=== PATIENT | male | born 1950 | race Caucasian/White ===

== ENCOUNTER 2016-09-10 12:26 | Inpatient (IN) | payer OTHER ==
[~2016-09-10] VITALS: Ht 165.1 cm; Wt 57.6 kg
[2016-09-11 04:44] LABS: HEMOGLOBIN 7.9 gm/dl (14.0-17.5); RED BLOOD COUNT 3.1 M/UL (4.20-5.50); WHITE BLOOD COUNT 14.8 K/UL (4.5-11.0)
[2016-09-11 04:56] LABS: BUN/CREATININE RATIO 26 (0-10)
[2016-09-11] MEDS ORDERED: PROAIR HFA8.5 GM INH (09:49)
[2016-09-11] MEDS ORDERED: DULERA 200 MCG8.8 GM INH (09:50)
[2016-09-12 05:56] LABS: BUN/CREATININE RATIO 30 (0-10)
[2016-09-13 04:53] LABS: HEMOGLOBIN 7.1 gm/dl (14.0-17.5); WHITE BLOOD COUNT 17.5 K/UL (4.5-11.0)
[2016-09-13 04:59] LABS: RED BLOOD COUNT 2.74 M/UL (4.20-5.50)
[2016-09-13 05:16] LABS: BUN/CREATININE RATIO 40 (0-10)
[2016-09-14 04:47] LABS: WHITE BLOOD COUNT 20.7 K/UL (4.5-11.0)
[2016-09-14 04:50] LABS: HEMOGLOBIN 10.3 gm/dl (14.0-17.5); RED BLOOD COUNT 3.89 M/UL (4.20-5.50)
[2016-09-14 05:13] LABS: BUN/CREATININE RATIO 37 (0-10)
[2016-09-15 06:43] LABS: BUN/CREATININE RATIO 44 (0-10)
[2016-09-15] MEDS ORDERED: COLACE100 MG PO (11:04)
[2016-09-15] MEDS ORDERED: FERROUS SULFAT325 M2 PO (11:04)
[2016-09-15] MEDS ORDERED: LOPRESSOR 25 MG25 MG PO (11:05)
[2016-09-15] MEDS ORDERED: LEVAQUIN750 MG PO (11:06)
[2016-09-15] MEDS ORDERED: ALBUTEROL0.63 MG/3 INH (11:07)
== END 2016-09-15 12:26 | disposition home or self-care (01) | DRG 853 ==
LOC: MED SURG 4 12:26
PROVIDERS: Internal Medicine Pulmonary Disease; ADMIT Internal Medicine
PROC: 0B9C8ZX Drainage of Right Upper Lung Lobe, Via Natural or Artificial Opening Endoscopic, Diagnostic (ICD-10-PCS; principal; 2016-09-11 08:30)
PROC: 30233N1 Transfusion of Nonautologous Red Blood Cells into Peripheral Vein, Percutaneous Approach (ICD-10-PCS; 2016-09-13)
DX: A41.81 Sepsis due to Enterococcus (principal); J15.1 Pneumonia due to Pseudomonas; J44.0 Chronic obstructive pulmonary disease with (acute) lower respiratory infection; J96.11 Chronic respiratory failure with hypoxia; T17.890A Other foreign object in other parts of respiratory tract causing asphyxiation, initial encounter; R78.81 Bacteremia; E46 Unspecified protein-calorie malnutrition; J44.1 Chronic obstructive pulmonary disease with (acute) exacerbation; X58.XXXA Exposure to other specified factors, initial encounter; D50.9 Iron deficiency anemia, unspecified; B95.2 Enterococcus as the cause of diseases classified elsewhere; R00.0 Tachycardia, unspecified; Z16.11 Resistance to penicillins; K44.9 Diaphragmatic hernia without obstruction or gangrene; M85.80 Other specified disorders of bone density and structure, unspecified site; M47.9 Spondylosis, unspecified; R91.8 Other nonspecific abnormal finding of lung field; Z87.891 Personal history of nicotine dependence; Z68.21 Body mass index [BMI] 21.0-21.9, adult; Z99.81 Dependence on supplemental oxygen; Z79.51 Long term (current) use of inhaled steroids; Z79.899 Other long term (current) drug therapy; Z88.3 Allergy status to other anti-infective agents; Z88.8 Allergy status to other drugs, medicaments and biological substances; Z90.49 Acquired absence of other specified parts of digestive tract; Z98.890 Other specified postprocedural states; Z83.6 Family history of other diseases of the respiratory system
CPT/HCPCS: ECHO; 36415; 36430; 36600; 71020; 80048; 80053; 80202; 82270; 82607; 82728; 82746; 82803; 83540; 83550; 83735; 85025; 85027; 85045; 85610; 86140; 86850; 86900; 86901; 86920; 87015; 87040; 87070; 87077; 87102; 87116; 87186; 87205; 93306; 94640; 97116; 97530; J1650; J1956; J2185; J2920; J2930; J3370; J7040; J7050; J7070; P9016

== ENCOUNTER → 2016-11-08 | Outpatient (CLI) | payer OTHER ==
[~2016-11-08] MED LIST: ALBUTEROL0.63 MG/3 INH; COLACE100 MG PO; DULERA 200 MCG8.8 GM INH; FERROUS SULFAT325 M2 PO; LEVAQUIN750 MG PO; LOPRESSOR 25 MG25 MG PO; PROAIR HFA8.5 GM INH
== END ==
LOC: RAD 16:09
DX: J47.9 Bronchiectasis, uncomplicated (principal); R91.8 Other nonspecific abnormal finding of lung field
CPT/HCPCS: 71020